=== PATIENT | female | born 1955 | race Caucasian/White ===

== ENCOUNTER 2016-12-05 08:16 | Inpatient (IN) | payer BC ==
[2016-11-12 12:14] VITALS: BMI 37.0
--- NOTE | 2016-11-12 12:48 | PAT Medication Instructions ---
Service Date Nov 12, 2016. Current Home Medication List Alprazolam (Alprazolam Er), 0.5 MG PO BID Atenolol (Tenormin), 25 MG PO QAM Atorvastatin (Lipitor), 20 MG PO QPM Bupropion (Wellbutrin-Xl), 300 MG PO QAM Calcium Carbonate-Vitamin D (Oscal 500/200 D-3), 1 TAB PO QAM Cholecalciferol (Vitamin D3), 1,000 TAB PO QAM Cyclobenzaprine Hcl (Flexeril), 10 MG PO TID PRN for PRN Duloxetine HCl (Cymbalta), 90 CAP PO QAM Ferrous Sulfate (Kp Ferrous Sulfate), 1 TAB PO QAM Lisinopril (Zestril), 20 MG PO QAM Multivitamin (Multivitamin), 1 TAB PO QAM Ranitidine HCl (Ranitidine [address]), 150 MG PO BID Sennosides-Docusate Sodium (Stool Softener), 1 TAB PO PRN Topiramate (Topamax ), 25 MG PO QPM Tramadol (Ultram), 50-100 MG PO Q6H Medication Instructions For Your Scheduled Surgery - Hold the following medications the morning of surgery: Sennosides-Docusate Sodium (Stool Softener), 1 TAB PO PRN Ferrous Sulfate (Kp Ferrous Sulfate), 1 TAB PO QAM Lisinopril (Zestril), 20 MG PO QAM Multivitamin (Multivitamin), 1 TAB PO QAM Ranitidine HCl (Ranitidine [address]), 150 MG PO BID Calcium Carbonate-Vitamin D (Oscal 500/200 D-3), 1 TAB PO QAM Cholecalciferol (Vitamin D3), 1,000 TAB PO QAM Cyclobenzaprine Hcl (Flexeril), 10 MG PO TID PRN for PRN - Take the following medications the morning of surgery with a sip of water: Duloxetine HCl (Cymbalta), 90 CAP PO QAM Bupropion (Wellbutrin-Xl), 300 MG PO QAM Alprazolam (Alprazolam Er), 0.5 MG PO BID Atenolol (Tenormin), 25 MG PO QAM Tramadol (Ultram), 50-100 MG PO Q6H (okay to take up to 4 hours prior to surgery if needed) - Take the following medications as scheduled the night before surgery: Topiramate (Topamax ), 25 MG PO QPM Ranitidine HCl (Ranitidine [address]), 150 MG PO BID Cyclobenzaprine Hcl (Flexeril), 10 MG PO TID PRN for PRN (if needed) Alprazolam (Alprazolam Er), 0.5 MG PO BID Atorvastatin (Lipitor), 20 MG PO QPM Tramadol (Ultram), 50-100 MG PO Q6H (if needed) If you have any questions please call us at [phone] or [phone] or [phone]
--- NOTE | 2016-11-12 13:29 | DIAGNOSTIC IMAGING REPORT ---
CHEST PREADMISSION(PA/LAT) CLINICAL HISTORY: Preoperative chest COMPARISON STUDY: No previous studies for comparison. FINDINGS: The cardiac and mediastinal contours are normal. There is no evidence of focal pulmonary consolidation. There is no evidence of failure. No pleural effusions are visualized.[ There are postsurgical changes present within the cervical spine IMPRESSION: No active disease in the chest. Electronically signed by: Uriel Hdz M.D. 11/12/2016 1:28 PM Dictated Date/Time: 11/12/2016 1:27 PM
[2016-11-12 13:53] LABS: BASO % 0.4 %; BASO ABS # 0.04 K/uL (0-0.2); COMPLETE YES; EOS % 2.5 %; HEMATOCRIT 41.1 % (37-47); IG% 0.2 %; LYMPH % 38.3 %; LYMPH ABS # 3.43 K/uL (1.2-3.4); MEAN CELL VOLUME 96.9 fL (80-100); MEAN CORPUSCULAR HEMOGLOBIN 30.2 pg (25-34); MEAN CORPUSCULAR HGB CONC 31.1 g/dl (32-36); MEAN PLATELET VOLUME 9.2 fL (7.4-10.4); NEUT % 52.6 %; PLATELET COUNT 255 K/uL (130-400); RED BLOOD COUNT 4.24 M/uL (4.2-5.4); WHITE BLOOD COUNT 8.95 K/uL (4.8-10.8)
[2016-11-12 13:55] LABS: URINE APPEARANCE CLEAR (CLEAR); URINE BILIRUBIN NEG (NEG); URINE COLOR YELLOW; URINE NITRITE NEG (NEG); URINE SPECIFIC GRAVITY 1.014 (1.000-1.030); UROBILINOGEN NEG (NEG)
[2016-11-12 13:56] LABS: ESTIMATED AVERAGE GLUCOSE 126 mg/dl; HA1C FLAG Normal (Normal)
[2016-11-12 14:05] LABS: INR 0.9 (0.9-1.1)
[2016-11-12 14:08] LABS: MANUAL MICROSCOPIC REQUIRED? NO; REVIEW REQ? NO
[2016-11-12 15:04] LABS: CALCIUM 9.3 mg/dl (8.5-10.1); CREATININE 0.96 mg/dl (0.60-1.20); POTASSIUM 4.4 mmol/L (3.5-5.1)
--- NOTE | 2016-11-15 08:43 | History and Physical ---
History & Physical Date Nov 15, 2016. Chief Complaint Right Knee Pain History of Present Illness Ms Pace is a 61 year old female who is here for a follow up of right knee pain. She presents with pain and swelling on the right side. She states that the symptoms have been chronic non-traumatic. Patient denies any new injuries. Patient states that she was recently seen at the ER for increased right knee pain and lower back pain. The symptoms occur constantly with intermittent worsening. The problem is fluctuating. Currently the patient states that the symptoms are moderate-severe. The pain is described as aching, discomforting and throbbing. The symptoms occur intermittently. The symptoms are aggravated by ascending stairs, daily activities, descending stairs, first steps while awake, driving, kneeling, movement, repetitive activities, sleeping on the affected side, squatting and walking. Kaitlin states that the symptoms are relieved by no specific activity. In addition to right knee pain the patient is also experiencing decreased mobility, difficulty bending, difficulty going to sleep, limping, nighttime awakening, pain, stiffness, tenderness and weakness. Pertinent negatives include chills and fever. The patient has had a previous x-ray and MRI. Prior pain medications include Ultram. Prior muscle relaxants include Flexeril. She has been treated with a corticosteroid injection on the right side. Patient has been treated with previous Synvisc One to her right knee, reports no relief with injections. Patient has had previous therapy. She attended physical therapy. Past Medical/Surgical History Hypertension High Cholesterol Anxiety Sleep Apnea h/o heart catheterization at [facility], she is unsure of date GERD Obesity Tonsillectomy Appendectomy Cholecystectomy x 4 Back surgery x 2 Previous knee arthroscopies Previous shoulder scope Additional History Hypertension: Yes Bleeding Tendencies: No Infectious Diseases: No Allergies Coded Allergies: No Known Allergies (Unverified , 11/12/16) Home Medications Scheduled Alprazolam (Alprazolam Er), 0.5 MG PO BID Atenolol (Tenormin), 25 MG PO QAM Atorvastatin (Lipitor), 20 MG PO QPM Bupropion (Wellbutrin-Xl), 300 MG PO QAM Calcium Carbonate-Vitamin D (Oscal 500/200 D-3), 1 TAB PO QAM Cholecalciferol (Vitamin D3), 1,000 TAB PO QAM Duloxetine HCl (Cymbalta), 90 CAP PO QAM Ferrous Sulfate (Kp Ferrous Sulfate), 1 TAB PO QAM Lisinopril (Zestril), 20 MG PO QAM Multivitamin (Multivitamin), 1 TAB PO QAM Ranitidine HCl (Ranitidine [address]), 150 MG PO BID Sennosides-Docusate Sodium (Stool Softener), 1 TAB PO PRN Topiramate (Topamax ), 25 MG PO QPM Tramadol (Ultram), 50-100 MG PO Q6H Scheduled PRN Cyclobenzaprine Hcl (Flexeril), 10 MG PO TID PRN for PRN Physical Examination Skin: warm/dry, no rash Eyes: normal inspection, EOMI, sclerae normal ENT: normal ENT inspection, pharynx normal Head: normocephalic, atraumatic Neck: supple, no adenopathy, trachea midline Respiratory/Chest: lungs clear, normal breath sounds, no respiratory distress Cardiovascular: regular rate, rhythm, no edema, no murmur Abdomen / GI: normal bowel sounds, non tender Addiitonal Comments: Physical Exam Exam Findings Details Ankle ROM R * Active ROM - Factors: normal, Description: active pain free range of motion. Passive ROM - Factors: normal, Description: passive pain free range of motion. Hip ROM R * Active ROM - Factors: normal, Description: active pain free range of motion. Passive ROM - Factors: normal, Description: passive pain free range of motion. Knee ROM R * Active ROM - Flexion: 100 degrees, Extension: 5 degrees, Factors: pain, Description: Active painful ROM. Strength LE Normal Strength Description - Normal lower extremity: Bilateral. Knee * Inspection - Gait: Limp. Alignment - Right: varus, Clinical. Ecchymosis - Right: negative. Effusion - Right: mild. Skin - Right: surgical scars. Swelling - Right: mild. Maximum tenderness - Right: Medial Joint Line. Patella exam - Crepitation - Right: mild. Patella position - Right: neutral. Knee Normal Inspection - Atrophy - Right: Absent. Patella exam - Apprehension - Right: Negative. Q-angle - Right: Normal. Jane's - Right: Negative. [facility]' s - lateral - Right: Negative. [facility]'s - medial - Right: Negative. Posterior drawer - Right: Negative. Anterior drawer - Right: Negative. Valgus stress - Right: Negative. Varus stress - Right: Negative. Extensor lag - Right: Normal. Neurovascular LE Normal Neurovascular examination including reflexes, sensation , and pulses is within normal limits. Knee Xray: Xrays reviewed of the right knee showing findings consistent with degenerative joint disease including joint space narrowing, subchondral sclerosis and peripheral osteophyte formation. no acute bony pathology, overall varus alignment. Impression: degenerative joint disease of the right knee with no acute bony pathology noted. Diagnosis Right Knee Osteoarthritis Further care discussed with patient and at this point in time has failed conservative measures and would like to proceed with a Right total knee replacement. Plan on discharge will be home with outpatient physical therapy. DVT prophalaxis with TEDs, SCDs and will also place on aspirin 81 mg p.o. b.i.d. for a month postop. Patient will have follow up appointment in our office two weeks post op for staple/suture removal and re-evaluation. Patient otherwise has no other questions or concerns.
[~2016-12-05] VITALS: Ht 157.5 cm; Wt 93.0 kg
[2016-12-05] VITALS (9 sets, daily range): BP systolic 86–110; BP diastolic 55–74; PULSE 61–74; TEMP 36.3–36.5; O2SAT 94–100; Ht 157.5 cm; Wt 93.0 kg
[2016-12-05] MEDS: TRANEXAMIC ACID INJ 1,000 MG in SODIUM CHLORIDE 0.9% 100ML 100 ML IV SCH ×2 (06:30→10:43)
--- NOTE | 2016-12-05 07:00 | History & Physical Bridge Note ---
H&P Re-Evaluation Bridge Note: I have examined the patient, reviewed the History & Physical and in the interval since the performance of the History & Physical I have noted the following changes of clinical significance: No changes noted
[~2016-12-05 08:16] MED LIST: ACETAMINOPHEN 500 MG TAB PO SCH; ALPR0.5T9 PO; ATEN-173 PO; ATOR-22 PO; ATROPINE SULFATE 0.1 MG/ML 5ML SYR IV PRN; BUPIVACAINE 0.25% 30 ML VIAL ONE; BUPIVACAINE 0.5 % 5 MG/1 ML PF 10ML VIAL ONE; BUPRTAB51 PO; CALC200T PO; CEFAZOLIN 2000 MG/60 ML D5W 60 ML IV SCH; CHOL1000 PO; CYCL10TA6 PO; CYM/30 PO; CeleBREX 200 MG CAP PO SCH; DEXAMETHASONE 4 MG TAB PO SCH; EpHEDrine SULFATE INJ 50 MG/ML AMP IV PRN; FAMOTIDINE 20 MG TAB PO SCH; FENTANYL CITRATE INJ 50 MCG/1 ML 2 ML VIAL IV PRN; FERR1TAB13 PO; GABAPENTIN 300 MG CAP PO SCH; LACTATED RINGER'S 1000ML 1,000 ML IV SCH; LACTATED RINGER'S 1000ML IV SCH; LACTATED RINGER'S 500 ML IV SCH; LISI-725 PO; METOCLOPRAMIDE HCL 10 MG TAB PO SCH; MULT-506 PO; ONDANSETRON INJ 2 MG/ML 2 ML VIAL IV PRN; RANI1TAB77 PO; ROPIVACAINE 5MG/ML 30 ML 150 MG, BUPIVACAINE/EPINEPHR 0.5% MPF 30 ML, KETOROLAC TROMETH... INFIL SCH; SENNTAB23 PO; TOPI25TA99 PO; TRAM-10 PO
[2016-12-05] MEDS ORDERED: FENTANYL CITRATE INJ 50 MCG/1 ML 2 ML VIAL ONE (08:53)
[2016-12-05] MEDS ORDERED: MIDAZOLAM HCL 1 MG/ML 2ML VIAL ONE (08:53)
[2016-12-05] MEDS ORDERED: ORTHO JOINT ANESTHETIC ONE (10:43)
[2016-12-05] MEDS ORDERED: BACITRACIN 50000 UNIT VIAL ONE (10:43)
[2016-12-05] MEDS ORDERED: POVIDONE-IODINE OP SOLN 30 ML BTL ONE (10:43)
[2016-12-05] MEDS ORDERED: PROPOFOL IV EMULSION 10 MG/ML 20 ML VIAL IV ONE (12:19)
[2016-12-05] MEDS ORDERED: LIDOCAINE HCL 2% 2 ML VIAL (20MG/ML) ONE (12:19)
--- NOTE | 2016-12-05 12:20 | [facility] Operative Report ---
Operative Report Operative Date Dec 05, 2016. Pre-Operative Diagnosis Right Knee Osteoarthritis Post-Operative Diagnosis Right Knee Osteoarthritis Procedure(s) Performed Right Total Knee Arthroplasty utilizing Hua & Nephew journey 2 nonlocked total knee arthroplasty size 5 femur 3 tibia Poly-[address] Rodrigo Reid Die Assembler Surgeon(s) Marcelo Lee PA-C Estimated Blood Loss 5ml Findings Severe end-stage Tri-Chlor milligrams degenerative joint disease right knee with varus alignment Specimens Permanent A. Right knee bone and tissue Complication(s) None Disposition Recovery Room / PACU Indications Severe end-stage tricompartmental degenerative joint disease with varus alignment right knee was once of the conservative management including physical therapy and anti-inflammatories relative rest bracing activity modification and injections Description of Procedure After proper prepping and draping of the Right lower extremity anterior midline incision was made over the region of the extensor extensor mechanism after meticulous hemostasis was obtained and maintained in subcutaneous tissues a medial parapatellar incision was made The patella was subluxed lateralward the medial lateral gutter were cleaned from any hypertrophic synovitis and scar tissue of the distal femoral block was placed and the distal femoral osteotomy cut was made subsequently the chamfers anterior and posterior osteotomy cuts were made utilizing the 4-in-1 block the tibia was subsequently subluxed anteriorward medial and ateral meniscal remnants were excised in their entirety remnants of the anterior and posterior cruciate ligaments were excised in their entirety excellent exposure of the proximal tibia was obtained the tibial osteotomy guide was placed on the proximal tibial osteotomy cut was made once again the knee was irrigated with copious amounts of sterile saline solution the patella was subsequently everted lateralward thickened scar tissue around the patella was removed the patella was subsequently cut utilizing a freehand technique and was drilled prepared for final preparation and placement of patella socially flexion-extension gaps were checked and the equal and symmetric trials were placed to the appropriate femoral and tibial trials with poly-spacer being placed for equal flexion and extension gaps and full range of motion including extension to 0 and flexion to 140 the trial components after having been taken to recovery range of motion was subsequently removed meticulous hemostasis was obtained and maintained subsequently a knee block injection of joint cocktail including ropivacaine 0.5% 150 mg. Bupivacaine 0.5 % epinephrine 1-200,030 mL's toradol 30 mg dexamethasone 4 mg ketamine 10 mg clonidine 100 micrograms normal saline solution 30 mg was infiltrated into the soft tissues of the posterior knee medial lateral gutters and periosteal synovium special attention was paid to protect neurovascular structures at all times subsequently trial components having been removed the knee was irrigated with sterile saline solution. debris was removed the proximal tibia was subsequently prepared and was made ready for the placement of the tibial component tibial component was also cemented and tamped into position the femoral component was subsequently placed and cemented in the position the patellar component was subsequently cemented in position because hemostasis once again obtained and maintained wound having been thoroughly irrigated with debridement and debridement lavage was performed as well as a medial parapatellar incision closed with #1 Vicryl in interrupted fashion subcutaneous was closed with #2 Vicryl skin was closed with skin clips. PA-C was necessary for prepping and drapping as well as wound closure of deep fascia Sub cutaneous tissue and skin and was necessary for the case. A sterile compressive dressing was placed patient was taken to recovery in stable condition of report dictated by Franklin I attest to the content of the Intraoperative Record and any orders documented therein. Any exceptions are noted below. I attest to the content of the Intraoperative Record and any orders documented therein. Any exceptions are noted below.
[2016-12-05] MEDS ORDERED: ONDANSETRON INJ 2 MG/ML 2 ML VIAL IV PRN (13:00)
[2016-12-05] MEDS ORDERED: ALUMINUM/MAGNESIUM/SIMETH (MAALOX MAX) 30 ML UDC PO PRN (13:00)
[2016-12-05] MEDS ORDERED: MoRPHine SULFATE 2 MG/ML CARP IV PRN (13:00)
[2016-12-05] MEDS ORDERED: MAGNESIUM HYDROXIDE SUSP 30 ML UDC PO PRN (13:00)
[2016-12-05] MEDS ORDERED: MoRPHine SULFATE 4 MG/ML 1 ML CARP\\VIAL IV PRN (13:00)
[2016-12-05] MEDS ORDERED: BISACODYL 10 MG SUPP PR PRN (13:00)
--- NOTE | 2016-12-05 13:29 | DIAGNOSTIC IMAGING REPORT ---
RIGHT KNEE 2 VIEWS History: Right total knee arthroplasty. Degenerative arthritis. Postop. FINDINGS: The patient is status post a right total knee arthroplasty. The hardware is intact. No fracture or dislocation. Surgical drains are in place. Small linear suprapatellar density favors a soft tissue calcification. IMPRESSION: Right total knee arthroplasty. No evidence for hardware complication. Electronically signed by: Emmanuel Arroyo M.D. 12/05/2016 1:28 PM Dictated Date/Time: 12/05/2016 1:26 PM
--- NOTE | 2016-12-05 13:41 | Anesthesiology Progress Note ---
Anesthesia Post Op Note Date & Time Dec 05, 2016 at 13:40 Vital Signs Pain Intensity: 0 Vital Signs Past 12 Hours Date Time Temp Pulse Resp B/P (MAP) Pulse Ox O2 Delivery O2 Flow Rate FiO2 12/05/16 13:25 76 16 105/67 100 Oxymask 3 12/05/16 13:15 74 16 114/69 100 Oxymask 3 12/05/16 13:05 77 16 119/70 100 Oxymask 5 12/05/16 12:57 36.4 74 16 122/66 100 Oxymask 10 12/05/16 08:48 36.5 63 18 110/72 100 Room Air Notes Mental Status: alert / awake / arousable, participated in evaluation Pt Amnestic to Procedure: Yes Nausea / Vomiting: adequately controlled Pain: adequately controlled Airway Patency, RR, SpO2: stable & adequate BP & HR: stable & adequate Hydration State: stable & adequate Neuraxial Anesthesia: was administered, sensory block is resolving Anesthetic Complications: no major complications apparent
[2016-12-05] MEDS: D5W AND 1/2NSS + 20MEQ KCL 1,000 ML IV SCH (15:13)
[2016-12-05] MEDS: TRAMADOL HCL 50 MG TAB PO PRN (15:43)
[2016-12-05] MEDS: KETOROLAC TROMETHAMINE 30 MG/ML VIAL IV. SCH ×2 (16:33→22:05)
[2016-12-05] MEDS ORDERED: ALPR-411 PO (17:04)
[2016-12-05] MEDS: FERROUS GLUCONATE 324 MG TAB PO SCH (18:01)
[2016-12-05] MEDS: CEFAZOLIN IV 2,000 MG in DEXTROSE 5% 50ML 50 ML IV SCH (20:04)
[2016-12-05] MEDS ORDERED: ALPRAZOLAM 0.5 MG TAB PO SCH (21:00)
[2016-12-05] MEDS: DOCUSATE SODIUM 100 MG CAP PO SCH (21:15)
[2016-12-05] MEDS: ASPIRIN 81 MG ECTAB PO SCH (21:15)
[2016-12-05] MEDS: RANITIDINE HCL 150 MG TAB PO SCH (21:16)
[2016-12-05] MEDS: TOPIRAMATE 25 MG TAB PO SCH (21:16)
[2016-12-05] MEDS: ATORVASTATIN 20 MG TAB PO SCH (21:16)
[2016-12-05] MEDS: ALPRAZOLAM 0.5 MG TAB PO SCH (21:16)
[2016-12-05] MEDS: ACETAMINOPHEN 500 MG TAB PO SCH (22:04)
[2016-12-06] MEDS: D5W AND 1/2NSS + 20MEQ KCL 1,000 ML IV SCH ×2 (00:52→11:26)
[2016-12-06 03:30] VITALS: BP 93/53; PULSE 61; TEMP 37; O2SAT 96
[2016-12-06] MEDS: CEFAZOLIN IV 2,000 MG in DEXTROSE 5% 50ML 50 ML IV SCH (04:26)
[2016-12-06] MEDS: KETOROLAC TROMETHAMINE 30 MG/ML VIAL IV. SCH (04:27)
[2016-12-06] MEDS: ACETAMINOPHEN 500 MG TAB PO SCH ×3 (05:34→21:46)
[2016-12-06 06:16] LABS: HEMATOCRIT 36.2 % (37-47); MEAN CELL VOLUME 95.5 fL (80-100); MEAN CORPUSCULAR HEMOGLOBIN 30.3 pg (25-34); MEAN CORPUSCULAR HGB CONC 31.8 g/dl (32-36); MEAN PLATELET VOLUME 9.1 fL (7.4-10.4); PLATELET COUNT 235 K/uL (130-400); RED BLOOD COUNT 3.79 M/uL (4.2-5.4); WHITE BLOOD COUNT 17.53 K/uL (4.8-10.8)
[2016-12-06 06:51] VITALS: BP 98/62; PULSE 66; TEMP 36.4; O2SAT 99
[2016-12-06 06:52] LABS: BUN/CREATININE RATIO 17.1 (10-20); CALCIUM 8.5 mg/dl (8.5-10.1); CREATININE 1.5 mg/dl (0.60-1.20); POTASSIUM 4.3 mmol/L (3.5-5.1)
[2016-12-06] MEDS: OXYCODONE HCL IR 5 MG TAB (IMMEDIATE RELEASE) PO PRN ×3 (07:39→20:05)
[2016-12-06] MEDS: FERROUS GLUCONATE 324 MG TAB PO SCH ×3 (08:47→17:40)
[2016-12-06] MEDS: DOCUSATE SODIUM 100 MG CAP PO SCH ×2 (08:48→21:08)
[2016-12-06] MEDS: DULOXETINE (CYMBALTA) 30 MG CAP PO SCH (08:48)
[2016-12-06] MEDS: ASPIRIN 81 MG ECTAB PO SCH ×2 (08:48→21:08)
[2016-12-06 08:49] VITALS: BP 115/71; PULSE 97
[2016-12-06] MEDS: MULTIVITAMIN TAB PO SCH (08:50)
[2016-12-06] MEDS: RANITIDINE HCL 150 MG TAB PO SCH ×2 (08:52→21:08)
[2016-12-06] MEDS: CHOLECALCIFEROL 1000 INTER.UNIT TAB PO SCH (08:52)
[2016-12-06] MEDS: LISINOPRIL 20 MG TAB PO SCH (08:53)
[2016-12-06] MEDS: BuPROPion XL 300 MG TABCR PO SCH (08:53)
--- NOTE | 2016-12-06 08:54 | Orthopedic Progress Note ---
Orthopedic Progress Note Date of Service Dec 06, 2016. Subjective Post OP Day: 1 Reports: feeling well Objective N/V intact, dressing C/D/I (Hemovac in place), toes mobile Date Time Temp Pulse Resp B/P (MAP) Pulse Ox O2 Delivery O2 Flow Rate FiO2 12/06/16 08:49 97 115/71 (86) 12/06/16 06:51 36.4 66 18 98/62 (74) 99 Room Air 12/06/16 03:30 37.0 61 14 93/53 (66) 96 Room Air 12/05/16 23:40 Room Air CPAP 12/05/16 23:34 36.4 63 16 93/56 (68) 95 Room Air 12/05/16 20:13 95/61 (72) 12/05/16 19:40 36.4 74 18 87/55 (66) 94 Room Air 12/05/16 17:00 36.4 66 16 98/64 (75) 97 Room Air 12/05/16 16:00 36.3 69 16 86/58 (67) 98 Room Air 12/05/16 15:40 100 Room Air 12/05/16 15:30 Nasal Cannula 2.0 12/05/16 15:00 36.4 61 16 103/65 (78) 100 Nasal Cannula 2.0 12/05/16 14:30 36.5 69 18 109/74 (86) 100 2.0 12/05/16 14:00 100 Nasal Cannula 2.0 12/05/16 14:00 Nasal Cannula 2.0 12/05/16 13:55 74 16 99/64 100 Nasal Cannula 2 12/05/16 13:45 69 16 106/68 100 Nasal Cannula 2 12/05/16 13:35 36.4 69 16 99/62 100 Nasal Cannula 2 12/05/16 13:25 76 16 105/67 100 Oxymask 3 12/05/16 13:15 74 16 114/69 100 Oxymask 3 12/05/16 13:05 77 16 119/70 100 Oxymask 5 12/05/16 12:57 36.4 74 16 122/66 100 Oxymask 10 Laboratory Results 24 Hours: Test 12/06/16 05:53 Hematocrit 36.2 % Hemoglobin 11.5 g/dL Assessment & Plan Assessment: 61 yo female stable POD #1 s/p right TKA Plan: 1. Med management 2. DVT prophylaxis- ASA, SCDs 3. PT/OT 4. D/C planning- home w/ OPPT
[2016-12-06] MEDS: ALPRAZOLAM 0.5 MG TAB PO SCH ×2 (08:55→21:08)
[2016-12-06] MEDS ORDERED: MULTIVITAMIN TAB PO SCH (09:00)
--- NOTE | 2016-12-06 12:03 | Discharge Instructions ---
Discharge Instructions Date of Service Dec 06, 2016. Admission Reason for Admission: Right Knee Osteoarthritis Discharge Discharge Diagnosis / Problem: Right total knee replacement Discharge Goals Goal(s): Decrease discomfort, Improve function, Increase independence Activity Recommendations Activity Limitations: as noted below Weightbearing Status: Right weightbearing (as tolerated) . Instructions / Follow-Up Instructions / Follow-Up ACTIVITY RECOMMENDATIONS: SELF CARE INSTRUCTIONS AFTER TOTAL KNEE REPLACEMENT A. You may need to continue a physical therapy program after discharge from the hospital. There are several options available to you. Your doctor will assist you in selecting the best one for you. 1. An out-patient facility 2 to 3 times a week for therapy or home therapy. 2. Continue working on all exercises taught to you in the hospital. Your goals should be to increase bending of your knee to 90 degrees and beyond and to fully straighten your knee. B. You may progress at your own pace from walking with a walker or crutches to a cane; then to no assistive devices. C. Make walking a part of your daily routine. Be up as much as comfortable with rest periods throughout the day. Rest with leg elevation is very important. Use the ice wrap frequently for the first 3-4 weeks. D. There are no restrictions on activities. You may ride in a car, shop, participate in senior technical support engineer and all social activities. E. Wear the long elastic stockings (ARABELLA hose) 20 hours a day for 2 weeks after surgery. They can be removed several times a day for laundering and for a bath. F. You may shower, no tub baths until cleared by your doctor. SPECIAL CARE INSTRUCTIONS: VERY IMPORTANT TO READ AND REVIEW A. There are a few signs you need to watch for after you are home. Call [facility] if you notice any of the followin. Increased severe knee pain. Some pain is expected especially when you exercise. 2. Increased swelling in your leg or knee; pain or swelling of the calf muscle in either lower leg. 3. Any fluid drainage from the incision. 4. Shortness of breath or chest pain. B. Please call [facility] at if you have any concerns or questions about your operation or recovery. The doctor or his nurse will return your call promptly. C. You must take antibiotics before dental work, bladder, bowel or other surgery. Your doctor will provide you with a permanent care to carry describing this precaution. IMPORTANT: * REMEMBER TO TAKE ASPIRIN, 81 MG, TWICE DAILY FOR 4 WEEKS UNLESS OTHERWISE DIRECTED. THIS IS YOUR BLOOD THINNER. * HIGH RISK PATIENTS MAY BE PRESCRIBED A STRONGER BLOOD THINNER. THIS WILL BE PROVIDED AT DISCHARGE. * CALL IF INCREASED PAIN, REDNESS, DRAINAGE OR FEVER GREATER THAT 101. * WEAR ARABELLA HOSE 20 HOURS PER DAY FOR 2 WEEKS. * DERMABOND Prineo- This is a mesh tape dressing that is covered with glue. It should remain in place until the incision is properly healed, usually 10-14 days. This dressing is designed to naturally slough off. You may trim the excess mesh tape as it peels off. Incision may be briefly wet in a shower. Dry immediately by blotting with a clean, dry towel. Do not bath or swim until instructed by your doctor. Do not scratch, rub, or pick at the dressing. Do not apply any topical ointments or lotions until dressing is completely removed and/or instructed by your doctor. There may be a small piece of suture material at one end of your incision. Do not pull or trim this. If it is bothersome or catching on clothing, you may cover it with a band-aid. FOLLOW UP VISIT: If appointment is not already scheduled: Please call [facility] to make a follow-up appointment for 2 weeks after your surgery at . Current Hospital Diet Patient's current hospital diet: Regular Diet Discharge Diet Recommended Diet: Regular Diet Procedures Procedures Performed: Right Total Knee Arthroplasty utilizing Hua & Nephew journey 2 nonlocked total knee arthroplasty size 5 femur 3 tibia Poly-29 oval patella Pending Studies Studies pending at discharge: no Laboratory Results Hemoglobin A1c Test 11/12/16 12:55 Range/Units Estimated Average Glucose 126 mg/dl Hemoglobin A1c 6.0 H 4.5-5.6 % Medical Emergencies . Who to Call and When: Medical Emergencies: If at any time you feel your situation is an emergency, please call 911 immediately. . Non-Emergent Contact Non-Emergency issues call your: Primary Care Provider, Surgeon . "Provider Documentation" section prepared by Darnell Mcdonald. . VTE Core Measure Inpt VTE Proph given/why not?: Other Anticoagulation (ASA 81mg po bid x 1 month ), T.E.Milagro Stockmarysol, SCD's [place] Drug Monitoring Program Search Results: patient reviewed within database, no issues identified
--- NOTE | 2016-12-06 13:05 | Anesthesiology Progress Note ---
Anesthesia Post Op Note Date & Time Dec 06, 2016 at 13:04 Vital Signs Pain Intensity: 8.0 Vital Signs Past 12 Hours Date Time Temp Pulse Resp B/P (MAP) Pulse Ox O2 Delivery O2 Flow Rate FiO2 12/06/16 08:49 97 115/71 (86) 12/06/16 07:35 Room Air 12/06/16 06:51 36.4 66 18 98/62 (74) 99 Room Air 12/06/16 03:30 37.0 61 14 93/53 (66) 96 Room Air Notes Mental Status: alert / awake / arousable, participated in evaluation Pt Amnestic to Procedure: Yes Nausea / Vomiting: adequately controlled Pain: adequately controlled Airway Patency, RR, SpO2: stable & adequate BP & HR: stable & adequate Hydration State: stable & adequate Neuraxial Anesthesia: was administered, sensory block resolved Anesthetic Complications: no major complications apparent
[2016-12-06 16:04] VITALS: BP 108/67; PULSE 85; TEMP 37; O2SAT 98
[2016-12-06] MEDS: TRAMADOL HCL 50 MG TAB PO PRN (17:39)
[2016-12-06] MEDS: ATORVASTATIN 20 MG TAB PO SCH (21:46)
[2016-12-06] MEDS: TOPIRAMATE 25 MG TAB PO SCH (21:46)
[2016-12-06 23:12] VITALS: BP 102/63; PULSE 85; TEMP 36.7; O2SAT 93
[2016-12-07] MEDS: ACETAMINOPHEN 500 MG TAB PO SCH (05:43)
[2016-12-07 06:06] VITALS: BP 108/70; PULSE 78; TEMP 36.6; O2SAT 100
[2016-12-07 06:52] LABS: BLOOD UREA NITROGEN 23 mg/dl (7-18); BUN/CREATININE RATIO 17.8 (10-20); CALCIUM 8.2 mg/dl (8.5-10.1); CARBON DIOXIDE 24 mmol/L (21-32); CHLORIDE 114 mmol/L (98-107); GLUCOSE 103 mg/dl (70-99); SODIUM 143 mmol/L (136-145)
[2016-12-07 07:01] VITALS: BP 102/66; PULSE 69; TEMP 36.6; O2SAT 100
[2016-12-07] MEDS: OXYCODONE HCL IR 5 MG TAB (IMMEDIATE RELEASE) PO PRN ×3 (07:32→11:42)
--- NOTE | 2016-12-07 07:39 | Orthopedic Progress Note ---
Orthopedic Progress Note Date of Service Dec 07, 2016. Subjective Post OP Day: 2 Reports: feeling well, pain controlled w PO medications, Denies: complaints, chest pain, SOB, nausea / vomiting, light headedness, calf pain Objective calves soft nontender, N/V intact, capillary refill less than 2 sec., incision C /D/I, A&O x3, toes mobile Date Time Temp Pulse Resp B/P (MAP) Pulse Ox O2 Delivery O2 Flow Rate FiO2 12/07/16 07:01 36.6 69 19 102/66 (78) 100 Room Air 12/07/16 06:06 36.6 78 16 108/70 (83) 100 Room Air 12/07/16 00:00 Room Air 12/06/16 23:12 36.7 85 16 102/63 (76) 93 CPAP 12/06/16 16:04 37.0 85 17 108/67 (81) 98 Room Air 12/06/16 15:40 Room Air 12/06/16 08:49 97 115/71 (86) Assessment & Plan Assessment: 61 yo female stable POD #2 s/p right TKA Plan: 1. Med management 2. DVT prophylaxis- ASA, SCDs 3. PT/OT 4. D/C planning- home w/ OPPT Discharge Planning Discharge Planning: home with oppt DVT Prophylaxis: TEDs, SCDs, ASA Therapy: Physical Therapy
[2016-12-07] MEDS ORDERED: ONDA8TAB6 PO (07:43)
[2016-12-07] MEDS ORDERED: CLC100 PO (07:43)
[2016-12-07] MEDS ORDERED: TRAM-10 PO (07:43)
[2016-12-07] MEDS ORDERED: RXC5 PO (07:43)
[2016-12-07] MEDS ORDERED: ASPEC81 PO (07:43)
[2016-12-07] MEDS ORDERED: ACET-24 PO (07:43)
[2016-12-07 08:57] VITALS: BP 119/79; PULSE 79
[2016-12-07] MEDS: LISINOPRIL 20 MG TAB PO SCH (08:58)
[2016-12-07] MEDS: FERROUS GLUCONATE 324 MG TAB PO SCH (08:58)
[2016-12-07] MEDS: CHOLECALCIFEROL 1000 INTER.UNIT TAB PO SCH (08:59)
[2016-12-07] MEDS: DULOXETINE (CYMBALTA) 30 MG CAP PO SCH (09:00)
[2016-12-07] MEDS: DOCUSATE SODIUM 100 MG CAP PO SCH (09:00)
[2016-12-07] MEDS: MULTIVITAMIN TAB PO SCH (09:00)
[2016-12-07] MEDS: BuPROPion XL 300 MG TABCR PO SCH (09:01)
[2016-12-07] MEDS: ALPRAZOLAM 0.5 MG TAB PO SCH (09:03)
[2016-12-07] MEDS: ASPIRIN 81 MG ECTAB PO SCH (09:53)
[2016-12-07] MEDS: RANITIDINE HCL 150 MG TAB PO SCH (09:53)
[2016-12-07 11:08] VITALS: BP 119/79; PULSE 79; TEMP 36.6; O2SAT 100
--- NOTE | 2016-12-07 11:17 | Discharge Summary ---
Orthopedic Discharge Summary Admission Date/Reason Dec 05, 2016 at 10:00 Right Knee Osteoarthritis. Discharge Date/Disposition Dec 07, 2016 Home Diagnosis Principal Diagnosis: Right Knee Djd Secondary Diagnoses/Problems: Hypertension High Cholesterol Anxiety Sleep Apnea h/o heart catheterization at [facility], she is unsure of date GERD Obesity Procedure(s) Performed Right TKA Medication Reconciliation New Medications: Ondansetron Hcl (Zofran) 8 Mg Tab 8 MG PO Q8 PRN for Nausea, #20 TAB Acetaminophen (Sb Non-Aspirin Extra Stre) 500 Mg Tab 1000 MG PO Q8H, #126 TAB Aspirin (Aspirin EC Low Dose) 81 Mg Ectab 81 MG PO BID for 30 Days, #60 TAB Docusate Sodium (Docusate Sodium) 100 Mg Cap 100 MG PO BID for 10 Days, #20 CAP Oxycodone HCl (Oxycodone HCl) 5 Mg Tab 5-10 MG PO Q4H PRN for Pain, #60 TAB Continued Medications: Alprazolam (Xanax) 0.5 Mg Tab 0.5 MG PO BID, TAB Atenolol (Tenormin) 25 Mg Tab 25 MG PO QAM, TAB Atorvastatin (Lipitor) 20 Mg Tab 20 MG PO QPM, TAB Bupropion (Wellbutrin-Xl) 300 Mg Tabcr 300 MG PO QAM, TAB Calcium Carbonate-Vitamin D (Oscal 500/200 D-3) 1 Tab Tab 1 TAB PO QAM Cholecalciferol (Vitamin D3) 1,000 Unit Tab 1000 TAB PO QAM for 90 Days, TAB 3 Refills Duloxetine HCl (Cymbalta) 30 Mg Cap 90 CAP PO QAM for 30 Days, #2700 CAP 2 Refills Ferrous Sulfate (Kp Ferrous Sulfate) 325 Mg Tab 1 TAB PO QAM for 30 Days, #30 TAB 3 Refills Lisinopril (Zestril) 20 Mg Tab 20 MG PO QAM, TAB Multivitamin (Multivitamin) Tab 1 TAB PO QAM, TAB Ranitidine HCl (Ranitidine [address]) 150 Mg Tab 150 MG PO BID Sennosides-Docusate Sodium (Stool Softener) 1 Tab Tab 1 TAB PO PRN Topiramate (Topamax ) 25 Mg Tab 25 MG PO QPM, TAB Tramadol (Ultram) 50 Mg Tab 50-100 MG PO Q6H, #60 TAB (This prescription has been renewed) Discontinued Medications: Cyclobenzaprine Hcl (Flexeril) 10 Mg Tab 10 MG PO TID PRN for PRN, #21 TAB Admission Physical Exam As per Admitting History & Physical. Hospital Course The Patient had an uneventful hospital course. Labs remained stable- lowest hemoglobin recorded: 11.5. Pain controlled on oral medications. Participated in PT with ambulation distance of 330 feet. ROM of operative knee reached 114 degrees. Drainage output totaled 445 cc prior to discontinuation. Patient did not have a reported bowel movement. Incision remained clean/dry/intact. DVT prophylaxis with Aspirin EC 81mg BID x 30 days/[place] stockings. Patient discharged home with Outpatient PT in stable condition. Please refer to daily progress notes for further details. Discharge Instructions Please refer to the electronic Patient Visit Report (Discharge Instructions) for additional information.
== END 2016-12-07 12:00 | disposition home or self-care (01) | DRG 470 ==
LOC: C.ACU 08:16 → C.3E 10:00 → ENRESERV 13:14
PROVIDERS: ADMIT Orthopaedic Surgery; ATTEND Orthopaedic Surgery
PROC: 0SRC0J9 Replacement of Right Knee Joint with Synthetic Substitute, Cemented, Open Approach (ICD-10-PCS; principal; 2016-12-05 10:45)
DX: M17.11 Unilateral primary osteoarthritis, right knee (principal); I10 Essential (primary) hypertension; E78.00 Pure hypercholesterolemia, unspecified; K21.9 Gastro-esophageal reflux disease without esophagitis; F41.9 Anxiety disorder, unspecified; E66.9 Obesity, unspecified; Z79.899 Other long term (current) drug therapy; Z68.37 Body mass index [BMI] 37.0-37.9, adult